=== PATIENT | female | born 1995 | race Caucasian/White ===

== ENCOUNTER 2017-02-01 21:56 | Emergency (ER) | payer OTHER ==
[2017-02-01 21:57] VITALS: BMI 23.8
[2017-02-01 22:22] VITALS: BP 114/72; PULSE 76; RESP 18; TEMP 98.2; O2SAT 99
[2017-02-01] MEDS ORDERED: Sodium Chloride 0.9% 1,000 ML IV STA (22:41)
--- NOTE | 2017-02-01 22:46 | ED PDOC ---
HPI: Headache Time Seen by Provider: 02/01/17 22:05 Chief Complaint (Nursing): Headache Chief Complaint (Provider): Headache - History of migraines. History Per: Patient History/Exam Limitations: no limitations Onset/Duration Of Symptoms: Hrs Current Symptoms Are (Timing): Still Present Severity: Severe Pain Scale Rating Of: 8 Quality: Dull, Tightness Preceeding Symptoms: Known Migraine Symptoms Associated Symptoms: Photophobia. denies: Blurred Vision, Nausea, Vomiting, Extremity Weakness Additional Complaint(s): Pt states this headache is similar to previous specifically when she came to the ER in March 2016. Pt states todya it is not as severe. Pt reports headace in the left orbital region earlier today but states that now it is across the front of the head. No trauma. No weakness. PT states she has been taking her daily medicatiosn for migraines and naproxen 12 horus ago which did not relieve symptoms. Past Medical History Reviewed: Historical Data, Nursing Documentation, Vital Signs Vital Signs: Last Vital Signs Temp 98.2 F 02/01/17 22:13 Pulse 76 02/01/17 22:13 Resp 18 02/01/17 22:13 BP 114/72 02/01/17 22:13 Pulse Ox 99 02/01/17 22:13 - Medical History PMH: Migraine - Surgical History Surgical History: No Surg Hx - Family History Family History: States: Unknown Family Hx - Home Medications Home Medications: Ambulatory Orders Medication Instructions Recorded Ibuprofen [Motrin] 600 mg PO TID 7 Days 03/21/16 Metoclopramide HCl [Reglan] 10 mg PO Q8H PRN #10 tablet 02/01/17 Polymyxin/Trimethoprim Sulfate 1 drop XX Q6H 10 Days 02/01/17 [Polytrim Ophth Soln] - Allergies Allergies/Adverse Reactions: Allergies Allergy/AdvReac Type Severity Reaction Status Date / Time No Known Allergies Allergy Verified 03/21/16 08:26 Physical Exam - Reviewed Nursing Documentation Reviewed: Yes Vital Signs Reviewed: Yes - Physical Exam Appears: Positive for: Well, Non-toxic, No Acute Distress Head Exam: Positive for: ATRAUMATIC, NORMAL INSPECTION, NORMOCEPHALIC Skin: Positive for: Normal Color, Warm, DRY Eye Exam: Positive for: Normal appearance, EOMI, PERRL ENT: Positive for: Normal ENT Inspection Neck: Positive for: Normal, Painless ROM Cardiovascular/Chest: Positive for: Regular Rate, Rhythm Respiratory: Positive for: CNT, Normal Breath Sounds Back: Positive for: Normal Inspection Extremity: Positive for: Normal ROM Neurologic/Psych: Positive for: Alert, head of housekeeping II-XII, Oriented, Mood/Affect, Cerebellar Tests, Gait. Negative for: Motor/Sensory Deficits, Aphasia, Facial Droop - ECG O2 Sat by Pulse Oximetry: 99 Medical Decision Making Medical Decision Making: Pt reprots feeling better on re-evaluation after medications and IV fluids. Disposition - Clinical Impression Clinical Impression: Migraine - Patient ED Disposition Is Patient to be Admitted: No Counseled Patient/Family Regarding: Diagnosis, Need For Followup, Rx Given - Disposition Disposition: Routine/Home Disposition Time: 23:33 Condition: GOOD Prescriptions: Metoclopramide HCl [Reglan] 10 mg PO Q8H PRN #10 tablet PRN Reason: Migraine or nausea Polymyxin/Trimethoprim Sulfate [Polytrim Ophth Soln] 1 drop XX Q6H 10 Days Instructions: Migraine Headache (ED)
== END 2017-02-01 23:37 | disposition home or self-care (01) ==
LOC: H.ER 21:56
DX: G43.909 Migraine, unspecified, not intractable, without status migrainosus (principal)
CPT/HCPCS: 81025; 96374; 99285; J1885; J2765; J7040